=== PATIENT | female | born 1990 | race Caucasian/White ===

== ENCOUNTER 2017-06-03 13:01 | Inpatient (IN) | payer MEDICAID ==
[2017-06-03] MEDS ORDERED: Misoprostol 200 MCG Tab PO PRN (15:51)
[2017-06-03] MEDS ORDERED: Carboprost Tromethamine 250 MCG/1 ML Amp IM PRN (15:51)
[2017-06-03] MEDS ORDERED: Lidocaine 1% 50 ML MDV INJECT PRN (15:51)
[2017-06-03] MEDS ORDERED: Nalbuphine 10 MG/1 ML Vial IVPUSH PRN (15:51)
[2017-06-03] MEDS ORDERED: Ampicillin 2 GM in Sodium Chloride 0.9% 100 ML IV ONE (15:51)
[2017-06-03] MEDS ORDERED: Sodium Chloride 0.9% 2.5 ML Syringe FLUSH PRN (15:51)
[2017-06-03] MEDS ORDERED: Sodium Chloride 0.9% 10 ML Syringe FLUSH PRN (15:51)
[2017-06-03] MEDS ORDERED: Butorphanol 1 MG/ML SDV IVPUSH PRN (15:51)
[2017-06-03] MEDS ORDERED: Methylergonovine 0.2 MG/1 ML Amp IM PRN (15:51)
[2017-06-03] MEDS ORDERED: Water For Irrigation,Sterile 1,000 ML Container IRR PRN (15:51)
[2017-06-03] MEDS ORDERED: Oxytocin/0.9 % Sodium Chloride 30 UNIT/500 ML BAG IV SCH ×2 (16:00→17:30)
[2017-06-03] MEDS ORDERED: Lactated Ringers 1,000 ML IV SCH ×3 (16:00→18:30)
--- NOTE | 2017-06-03 16:36 | US ---
EXAM DATE: 06/03/17 PATIENT'S AGE: 27 Patient: ARBEN MILLER Facility: [place], [place] Site . Site : 1990 Study: US OB Pelvis [id number] 3:31:04 PM Ordering Physician: Alex Marquez Final Report: HISTORY: History of decelerations with contractions. Non reassuring heart tones. FINDINGS: Multiple grayscale static images from a biophysical profile were evaluated. There is a single viable intrauterine fetus in cephalic presentation. The cardiac rate is 158 beats per minute. The amniotic fluid index is 9.7 cm. The placenta is posterior and appears mature. No previa. The umbilical cord is seen near the neck but not visualized well enough to evaluate for nuchal cord. Three- vessel cord is present. Biophysical profile is 0/2 for breathing, 2/2 for movement, 2/2 for tone and 2/2 for amniotic fluid. Biophysical total is 6/8. IMPRESSION: 1. Single viable intrauterine fetus in cephalic presentation. 2. Amniotic fluid index is 9.7 cm. 3. Posterior mature placenta without previa. 4. Umbilical cord is noted at the neck. It is not visualized well enough to determine nuchal cord. 5. Biophysical profile 6/8. Dictated by Coleen Bolanos MD @ 06/03/2017 3:43:50 PM Dictated by: Coleen Bolanos MD @ 06/03/2017 15:44:08 (Electronic Signature) Report Signed by Proxy. MILLI
[2017-06-03] MEDS ORDERED: fentaNYL 100 MCG/2 ML SDV ONE (16:54)
[2017-06-03] MEDS ORDERED: Morphine PF 1 MG/ML Amp ONE (17:12)
[2017-06-03] MEDS ORDERED: Citric Acid/Sodium Citrate Solution 30 ML Cup ONE (17:24)
[2017-06-03] MEDS ORDERED: Propofol 200 MG/20 ML SDV ONE (17:26)
[2017-06-03] MEDS ORDERED: Citric Acid/Sodium Citrate Solution 30 ML Cup PO SCH (17:30)
--- NOTE | 2017-06-03 17:35 | PCM.LDHP ---
L&D History of Present Illness - General Date of Service: 06/03/17 Admit Problem/Dx: Patient Status Order with Admit Dx/Problem 06/03/17 17:26 Patient Status [ADT] Routine Admission Diagnosis/Problem Admission Diagnosis/Problem Source of Information: Patient History Limitations: Reports: No Limitations - History of Present Illness Improves with: Reports: None Worsens with: Reports: None Associated Symptoms: Reports: N - Related Data Allergies/Adverse Reactions: Allergies Allergy/AdvReac Type Severity Reaction Status Date / Time No Known Allergies Allergy Verified 04/26/16 22:30 Past Medical History - Past Health History Medical/Surgical History: Denies Medical/Surgical History Cardiovascular History: Reports: Heart Murmur Gastrointestinal History: Reports: Cholelithiasis DIRECTOR EPIDEMIOLOGY History: Reports: , Spontaneous Musculoskeletal History: Reports: Other (See Below) Other Musculoskeletal History: legg perthesis Neurological History: Reports: Migraines - Infectious Disease History Infectious Disease History: Reports: Chicken Pox - Past Surgical History GI Surgical History: Reports: Cholecystectomy Musculoskeletal Surgical History: Reports: Other (See Below) Other Musculoskeletal Surgeries/Procedures:: left hip surgery in and Social & Family History - Family History Family Medical History: Unobtainable Cardiac: Reports: Hypertension, [place] Neurological: Reports: CVA Endocrine/Metabolic: Reports: Diabetes, type II - Tobacco Use Smoking Status *Q: Current Every Day Smoker Years of Tobacco use: 4 Packs/Tins Daily: 1 Second Hand Smoke Exposure: Yes - Caffeine Use Caffeine Use: Reports: Coffee Caffeine Use Comment: 2 cups a day - Recreational Drug Use Recreational Drug Use: No H&P Review of Systems - Review of Systems: Review Of Systems: See Below General: Reports: No Symptoms HEENT: Reports: No Symptoms Pulmonary: Reports: No Symptoms Cardiovascular: Reports: No Symptoms Gastrointestinal: Reports: No Symptoms Genitourinary: Reports: No Symptoms Musculoskeletal: Reports: No Symptoms Skin: Reports: No Symptoms Psychiatric: Reports: No Symptoms Neurological: Reports: No Symptoms Hematologic/Lymphatic: Reports: No Symptoms Immunologic: Reports: No Symptoms L&D Exam - Exam Exam: See Below - Vital Signs Weight: 131.542 kg - OB Specific Fundal Height In cm: 37 Contraction Intensity: Moderate Movement: Active Heart Tones: Present Presentation: Vertex - Patient Data Lab Results Last 24 hrs: Laboratory Results - last 24 hr 06/03/17 06/03/17 Range/Units 16:20 16:20 WBC 9.23 (4.0-11.0) K/uL RBC 4.87 (4.30-5.90) M/uL Hgb 14.0 (12.0-16.0) g/dL Hct 42.1 (36.0-46.0) % MCV 86.4 (80.0-98.0) fL MCH 28.7 (27.0-32.0) pg MCHC 33.3 (31.0-37.0) g/dL RDW Std Deviation 46.8 (28.0-62.0) fl RDW Coeff of Delroy 15 (11.0-15.0) % Plt Count 232 (150-400) K/uL MPV 11.30 (7.40-12.00) fL Nucleated RBC % 0.0 /100WBC Nucleated RBCs # 0 K/uL Blood Type B POSITIVE Antibody Screen NEGATIVE Result Diagrams: 06/03/17 16:20 Problem List Initiated/Reviewed/Updated: Yes Orders Last 24hrs: Active Orders 24 hr Category Date Time Status Patient Status [ADT] Routine ADT 06/03/17 17:26 Active Heart Tones [RC] CONTINUOUS Care 06/03/17 15:51 Inactive Non Stress Test [RC] PER UNIT ROUTINE Care 06/03/17 14:24 Inactive Non Stress Test [RC] PER UNIT ROUTINE Care 06/03/17 15:51 Inactive Non Stress Test [RC] PER UNIT ROUTINE Care 06/03/17 17:26 Active May Shower [RC] ASDIRECTED Care 06/03/17 15:51 Inactive Notify Provider Vital Signs [RC] PRN Care 06/03/17 17:28 Active Notify Provider [RC] PRN Care 06/03/17 15:51 Inactive Procedure Site Prep Instruct [RC] ASDIRECTED Care 06/03/17 17:26 Active Up ad Stephanie [RC] ASDIRECTED Care 06/03/17 14:24 Inactive Up ad Stephanie [RC] ASDIRECTED Care 06/03/17 15:51 Inactive Up ad Stephanie [RC] ASDIRECTED Care 06/03/17 17:26 Active Vaginal Exam [RC] Click to Edit Care 06/03/17 14:24 Inactive Vaginal Exam [RC] PRN Care 06/03/17 15:51 Inactive Verify Patient Consent Obtain [RC] ASDIRECTED Care 06/03/17 17:26 Active Vital Signs [RC] PER UNIT ROUTINE Care 06/03/17 14:24 Inactive Vital Signs [RC] PER UNIT ROUTINE Care 06/03/17 15:51 Inactive Vital Signs [RC] PER UNIT ROUTINE Care 06/03/17 17:26 Active Citric Acid/Sodium Citrate [Bicitra Solution] Med 06/03/17 17:30 Ordered 30 ml PO .ONCE Lactated Ringers [Ringers, Lactated] 1,000 ml Med 06/03/17 17:30 Ordered IV .BOLUS Oxytocin/0.9 % Sodium Chloride [Oxytocin 30 Unit/500 ML Med 06/03/17 17:30 Ordered -NS] 30 unit in 500 ml IV TITRATE Schedule Procedure [COMM] Per Unit Routine Oth 06/03/17 17:26 Ordered Resuscitation Status Routine Resus Stat 06/03/17 17:26 Ordered Medication Orders Citric Acid/Sodium Citrate (Bicitra Solution) 30 ml PO .ONCE BRENDA Lactated Ringer's (Ringers, Lactated) 1,000 mls @ 500 mls/hr IV .BOLUS BRENDA Oxytocin/Sodium Chloride (Oxytocin 30 Unit/500 Ml-Ns) 30 unit in 500 mls @ 250 mls/hr IV TITRATE BRENDA Assessment/Plan Comment:: Unassigned Pt IUP 36+4 FAR Cat 2 remote from delivery will do primary C/ section.
[2017-06-03] MEDS ORDERED: Oxytocin 10 Units/1 ML SDV ONE ×2 (18:01→18:29)
[2017-06-03] MEDS ORDERED: Ondansetron 4 MG/2 ML SDV ONE (18:19)
[2017-06-03] MEDS ORDERED: Octyl 2-Cyanoacrylate 1 Tube ONE (18:22)
[2017-06-03] MEDS ORDERED: Acetaminophen/oxyCODONE 325-5 MG Tab PO PRN ×3 (18:29→19:10)
[2017-06-03] MEDS ORDERED: Lanolin 100% Cream 7 GM Tube TOP PRN (18:29)
[2017-06-03] MEDS ORDERED: Bisacodyl 10 MG Supp RECTAL PRN (18:29)
[2017-06-03] MEDS ORDERED: diphenhydrAMINE 50 MG/ML SDV IVPUSH PRN ×2 (18:29→19:10)
[2017-06-03] MEDS ORDERED: Ondansetron 4 MG/2 ML SDV IVPUSH PRN (18:29)
--- NOTE | 2017-06-03 18:29 | PCM.OPNOTE ---
- General Post-Op/Procedure Note Date of Surgery/Procedure: 06/03/17 Operative Procedure(s): Primary C/Section. IUP36+4 Pre Op Diagnosis: IUP 36+4 Unassigned distress Post-Op Diagnosis: Same Anesthesia Technique: Spinal Primary Surgeon: Jimmy Johnson Sales Representative Supervisor: Delaney Coughlin EBL in mLs: 800 Complications: None Condition: Good
[2017-06-03] MEDS ORDERED: Ketorolac 15 MG/ML SDV ONE (19:06)
[2017-06-03] MEDS: Ketorolac 30 MG/ML SDV IVPUSH SCH (19:09)
[2017-06-03] MEDS ORDERED: fentaNYL 100 MCG/2 ML SDV IVPUSH PRN (19:10)
[2017-06-03] MEDS ORDERED: Naloxone 0.4 MG/ML Syringe IVPUSH PRN (19:10)
--- NOTE | 2017-06-03 19:18 | PCM.PREANE ---
Preanesthetic Assessment - Anesthesia/Transfusion/Family Hx Anesthesia History: Prior Anesthesia Without Reaction Family History of Anesthesia Reaction: No Transfusion History: No Prior Transfusion(s) - Review of Systems General: No Symptoms Pulmonary: No Symptoms Cardiovascular: No Symptoms Gastrointestinal: No Symptoms Neurological: No Symptoms Other: Reports: None - Physical Assessment NPO Status Date: 06/03/17 NPO Status Time: 10:00 O2 Sat by Pulse Oximetry: 99 Respiratory Rate: 20 Vital Signs: Last Vital Signs Temp 36.9 C 06/03/17 18:39 Pulse 59 L 06/03/17 19:09 Resp 20 06/03/17 19:09 BP 101/53 L 06/03/17 19:09 Pulse Ox 99 06/03/17 19:09 Height: 1.6 m Weight: 131.542 kg ASA Class: 3E Mental Status: Alert & Oriented x3 Airway Class: Mallampati = 3 Dentition: Reports: Normal Dentition Thyro-Mental Finger Breadths: 3 Mouth Opening Finger Breadths: 3 ROM/Head Extension: Full Lungs: Clear to Auscultation, Normal Respiratory Effort Cardiovascular: Regular Rate, Murmurs (grade 1 S1 murmur. pt reports lifelong and asymptomatic) - Lab Values: Laboratory Last Values WBC 9.23 K/uL (4.0-11.0) 06/03/17 16:20 RBC 4.87 M/uL (4.30-5.90) 06/03/17 16:20 Hgb 14.0 g/dL (12.0-16.0) 06/03/17 16:20 Hct 42.1 % (36.0-46.0) 06/03/17 16:20 MCV 86.4 fL (80.0-98.0) 06/03/17 16:20 MCH 28.7 pg (27.0-32.0) 06/03/17 16:20 MCHC 33.3 g/dL (31.0-37.0) 06/03/17 16:20 RDW Std Deviation 46.8 fl (28.0-62.0) 06/03/17 16:20 RDW Coeff of Delroy 15 % (11.0-15.0) 06/03/17 16:20 Plt Count 232 K/uL (150-400) 06/03/17 16:20 MPV 11.30 fL (7.40-12.00) 06/03/17 16:20 Nucleated RBC % 0.0 /100WBC 06/03/17 16:20 Nucleated RBCs # 0 K/uL 06/03/17 16:20 Blood Type B POSITIVE 06/03/17 16:20 Antibody Screen NEGATIVE 06/03/17 16:20 - Allergies Allergies/Adverse Reactions: Allergies Allergy/AdvReac Type Severity Reaction Status Date / Time No Known Allergies Allergy Verified 04/26/16 22:30 - Blood Blood Available: Yes Product(s) Available: PRBC - Acknowledgements Anesthesia Type Planned: Spinal (Planned spinal with GETA as backup plan.) Pt an Appropriate Candidate for the Planned Anesthesia: Yes Alternatives and Risks of Anesthesia Discussed w Pt/Guardian: Yes Pt/Guardian Understands and Agrees with Anesthesia Plan: Yes Additional Comments: Pt reports had an epidural placed "which ended up as a spinal" in 2008. Catheter apparently was threaded into SA space. Pt stated it was a "difficult placement". PreAnesthesia Questionnaire - Past Health History Medical/Surgical History: Denies Medical/Surgical History Cardiovascular History: Reports: Heart Murmur Gastrointestinal History: Reports: Cholelithiasis CODING ASSISTANT History: Reports: , Spontaneous Musculoskeletal History: Reports: Other (See Below) Other Musculoskeletal History: legg perthesis Neurological History: Reports: Migraines - Infectious Disease History Infectious Disease History: Reports: Chicken Pox - Past Surgical History GI Surgical History: Reports: Cholecystectomy Musculoskeletal Surgical History: Reports: Other (See Below) Other Musculoskeletal Surgeries/Procedures:: left hip surgery in and - SUBSTANCE USE Smoking Status *Q: Current Every Day Smoker Tobacco Use Within Last Twelve Months: Cigarettes Second Hand Smoke Exposure: Yes Recreational Drug Use History: No - CURRENT (IN HOUSE) MEDS Current Meds: Current Medications Bisacodyl (Dulcolax) 10 mg RECTAL .ONCE PRN PRN Reason: Constipation Citric Acid/Sodium Citrate (Bicitra Solution) 30 ml PO .ONCE BRENDA Diphenhydramine HCl (Benadryl) 25 mg IVPUSH Q6H PRN PRN Reason: Itching or Nausea Docusate Sodium (Colace) 100 mg PO BID BRENDA Emollient Ointment (Lansinoh Hpa) 0 gm TOP ASDIRECTED PRN PRN Reason: Sore Nipples Lactated Ringer's (Ringers, Lactated) 1,000 mls @ 500 mls/hr IV .BOLUS BRENDA Oxytocin/Sodium Chloride (Oxytocin 30 Unit/500 Ml-Ns) 30 unit in 500 mls @ 250 mls/hr IV TITRATE [facility] Lactated Ringer's (Ringers, Lactated) 1,000 mls @ 125 mls/hr IV ASDIRECTED [facility] Ibuprofen (Motrin) 800 mg PO Q8H PRN PRN Reason: mild pain or fever Ketorolac Tromethamine (Toradol) 30 mg IVPUSH Q6H [facility] Stop: 06/04/17 18:31 Last Admin: 06/03/17 19:09 Dose: 30 mg Ondansetron HCl (Zofran) 4 mg IVPUSH Q4H PRN PRN Reason: Nausea/Vomiting Oxycodone/Acetaminophen (Percocet 325-5 Mg) 1 tab PO Q4H PRN PRN Reason: Pain (moderate 4-6) Oxycodone/Acetaminophen (Percocet 325-5 Mg) 2 tab PO Q4H PRN PRN Reason: Pain (moderate 4-6) Discontinued Medications Butorphanol Tartrate (Stadol) 1 mg IVPUSH Q1H PRN PRN Reason: Pain Carboprost Tromethamine (Hemabate Ds) 250 mcg IM ASDIRECTED PRN PRN Reason: Post Hemorrhage Citric Acid/Sodium Citrate (Bicitra Solution) Confirm Administered Dose 30 ml .ROUTE .STK-MED ONE Stop: 06/03/17 17:25 Fentanyl (Sublimaze) Confirm Administered Dose 100 mcg .ROUTE .STK-MED ONE Stop: 06/03/17 16:55 Ampicillin Sodium 2 gm/ Sodium (Chloride) 100 mls @ 200 mls/hr IV ONETIME ONE Stop: 06/03/17 16:20 Last Admin: 06/03/17 16:00 Dose: 200 mls/hr Lactated Ringer's (Ringers, Lactated) 1,000 mls @ 150 mls/hr IV ASDIRECTED [facility] Last Admin: 06/03/17 17:21 Dose: 150 mls/hr Oxytocin/Sodium Chloride (Oxytocin 30 Unit/500 Ml-Ns) 30 unit in 500 mls @ 500 mls/hr IV TITRATE [facility] Ketorolac Tromethamine (Toradol) Confirm Administered Dose 15 mg .ROUTE .STK- MED ONE Stop: 06/03/17 19:07 Lidocaine HCl (Xylocaine 1%) 50 ml INJECT .ONCE PRN PRN Reason: Laceration repair Methylergonovine Maleate (Methergine) 0.2 mg IM ASDIRECTED PRN PRN Reason: Post Hemorrhage Misoprostol (Cytotec) 200 mcg PO .ONCE PRN PRN Reason: Post Hemorrhage Morphine Sulfate (Duramorph Pf) Confirm Administered Dose 1 mg .ROUTE .STK-MED ONE Stop: 06/03/17 17:13 Nalbuphine HCl (Nubain) 10 mg IVPUSH Q1H PRN PRN Reason: Pain (severe 7-10) Octyl Cyanoacrylate (Dermabond Advance) Confirm Administered Dose 1 applic .ROUTE .STK-MED ONE Stop: 06/03/17 18:23 Ondansetron HCl (Zofran) Confirm Administered Dose 4 mg .ROUTE .STK-MED ONE Stop: 06/03/17 18:20 Oxytocin (Pitocin) Confirm Administered Dose 20 unit .ROUTE .STK-MED ONE Stop: 06/03/17 18:02 Oxytocin (Pitocin) Confirm Administered Dose 20 unit .ROUTE .STK-MED ONE Stop: 06/03/17 18:30 Propofol (Diprivan 20 Ml) Confirm Administered Dose 200 mg .ROUTE .STK-MED ONE Stop: 06/03/17 17:27 Sodium Chloride (Saline Flush) 10 ml FLUSH ASDIRECTED PRN PRN Reason: Keep Vein Open Sodium Chloride (Saline Flush) 2.5 ml FLUSH ASDIRECTED PRN PRN Reason: Keep Vein Open Sterile Water (Sterile Water For Irrigation) 1,000 ml IRR ASDIRECTED PRN PRN Reason: delivery
--- NOTE | 2017-06-03 19:18 | PCM.POSTAN ---
POST ANESTHESIA ASSESSMENT - MENTAL STATUS Mental Status: Alert, Oriented - RESPIRATORY Respiratory Status: Respiratory Rate WNL, Airway Patent, O2 Saturation Stable - CARDIOVASCULAR CV Status: Pulse Rate WNL, Blood Pressure Stable - GASTROINTESTINAL GI Status: No Symptoms - POST OP HYDRATION Hydration Status: Adequate & Stable
[2017-06-03] MEDS: Nalbuphine 10 MG/1 ML Vial IVPUSH PRN (21:05)
[2017-06-04] MEDS: Ketorolac 30 MG/ML SDV IVPUSH SCH ×4 (01:09→18:49)
[2017-06-04] MEDS: Nalbuphine 10 MG/1 ML Vial IVPUSH PRN (02:45)
--- NOTE | 2017-06-04 11:13 | PCM.SURGPN ---
- General Info Date of Service: 06/04/17 POD#: 1 Functional Status: Reports: Pain Controlled - Review of Systems General: Reports: No Symptoms HEENT: Reports: No Symptoms Pulmonary: Reports: No Symptoms Cardiovascular: Reports: No Symptoms Gastrointestinal: Reports: No Symptoms Genitourinary: Reports: No Symptoms Musculoskeletal: Reports: No Symptoms Skin: Reports: No Symptoms Neurological: Reports: No Symptoms Psychiatric: Reports: No Symptoms - Patient Data Vitals - Most Recent: Last Vital Signs Temp 37.0 C 06/04/17 08:00 Pulse 87 06/04/17 08:00 Resp 18 06/04/17 09:00 BP 93/46 L 06/04/17 08:00 Pulse Ox 95 06/04/17 09:00 Weight - Most Recent: 131.542 kg I&O - Last 24 Hours: Intake & Output 06/03/17 06/04/17 06/04/17 22:59 06:59 14:59 Intake Total 3300 2025 Output Total 250 650 550 Balance 3050 1375 -550 Lab Results Last 24 Hrs: Laboratory Results - last 24 hr 06/03/17 06/03/17 06/04/17 Range/Units 16:20 16:20 05:20 WBC 9.23 (4.0-11.0) K/uL RBC 4.87 (4.30-5.90) M/uL Hgb 14.0 11.4 L (12.0-16.0) g/dL Hct 42.1 34.1 L (36.0-46.0) % MCV 86.4 (80.0-98.0) fL MCH 28.7 (27.0-32.0) pg MCHC 33.3 (31.0-37.0) g/dL RDW Std Deviation 46.8 (28.0-62.0) fl RDW Coeff of Delroy 15 (11.0-15.0) % Plt Count 232 (150-400) K/uL MPV 11.30 (7.40-12.00) fL Nucleated RBC % 0.0 /100WBC Nucleated RBCs # 0 K/uL Blood Type B POSITIVE Antibody Screen NEGATIVE Med Orders - Current: Current Medications Bisacodyl (Dulcolax) 10 mg RECTAL .ONCE PRN PRN Reason: Constipation Citric Acid/Sodium Citrate (Bicitra Solution) 30 ml PO .ONCE [facility]EN[facility] Diphenhydramine HCl (Benadryl) 25 - 50 mg IVPUSH Q4H PRN PRN Reason: Itching Stop: 06/04/17 19:12 Last Admin: 06/03/17 23:58 Dose: 25 mg Docusate Sodium (Colace) 100 mg PO BID [facility] Emollient Ointment (Lansinoh Hpa) 0 gm TOP ASDIRECTED PRN PRN Reason: Sore Nipples Fentanyl (Sublimaze) 50 - 100 mcg IVPUSH Q30M PRN PRN Reason: Breakthrough Pain Stop: 06/04/17 19:11 Lactated Ringer's (Ringers, Lactated) 1,000 mls @ 500 mls/hr IV .BOLUS [facility] Oxytocin/Sodium Chloride (Oxytocin 30 Unit/500 Ml-Ns) 30 unit in 500 mls @ 250 mls/hr IV TITRATE [facility] Lactated Ringer's (Ringers, Lactated) 1,000 mls @ 125 mls/hr IV ASDIRECTED [facility] Last Admin: 06/03/17 22:51 Dose: 125 mls/hr Ibuprofen (Motrin) 800 mg PO Q8H PRN PRN Reason: mild pain or fever Ketorolac Tromethamine (Toradol) 30 mg IVPUSH Q6H [facility] Stop: 06/04/17 18:31 Last Admin: 06/04/17 07:08 Dose: 30 mg Nalbuphine HCl (Nubain) 2.5 - 10 mg IVPUSH Q3H PRN PRN Reason: Pruritis Stop: 06/04/17 19:12 Last Admin: 06/04/17 02:45 Dose: 5 mg Naloxone HCl (Narcan) 0.1 mg IVPUSH ONETIME PRN PRN Reason: Respiratory Depression Stop: 06/04/17 19:13 Ondansetron HCl (Zofran) 4 mg IVPUSH Q4H PRN PRN Reason: Nausea/Vomiting Oxycodone/Acetaminophen (Percocet 325-5 Mg) 1 tab PO Q4H PRN PRN Reason: Pain (moderate 4-6) Oxycodone/Acetaminophen (Percocet 325-5 Mg) 2 tab PO Q4H PRN PRN Reason: Pain (moderate 4-6) Discontinued Medications Butorphanol Tartrate (Stadol) 1 mg IVPUSH Q1H PRN PRN Reason: Pain Carboprost Tromethamine (Hemabate Ds) 250 mcg IM ASDIRECTED PRN PRN Reason: Post Hemorrhage Citric Acid/Sodium Citrate (Bicitra Solution) Confirm Administered Dose 30 ml .ROUTE .STK-MED ONE Stop: 06/03/17 17:25 Diphenhydramine HCl (Benadryl) 25 mg IVPUSH Q6H PRN PRN Reason: Itching or Nausea Fentanyl (Sublimaze) Confirm Administered Dose 100 mcg .ROUTE .STK-MED ONE Stop: 06/03/17 16:55 Ampicillin Sodium 2 gm/ Sodium (Chloride) 100 mls @ 200 mls/hr IV ONETIME ONE Stop: 06/03/17 16:20 Last Admin: 06/03/17 16:00 Dose: 200 mls/hr Lactated Ringer's (Ringers, Lactated) 1,000 mls @ 150 mls/hr IV ASDIRECTED [facility] Last Admin: 06/03/17 17:21 Dose: 150 mls/hr Oxytocin/Sodium Chloride (Oxytocin 30 Unit/500 Ml-Ns) 30 unit in 500 mls @ 500 mls/hr IV TITRATE [facility] Ketorolac Tromethamine (Toradol) Confirm Administered Dose 15 mg .ROUTE .STK- MED ONE Stop: 06/03/17 19:07 Lidocaine HCl (Xylocaine 1%) 50 ml INJECT .ONCE PRN PRN Reason: Laceration repair Methylergonovine Maleate (Methergine) 0.2 mg IM ASDIRECTED PRN PRN Reason: Post Hemorrhage Misoprostol (Cytotec) 200 mcg PO .ONCE PRN PRN Reason: Post Hemorrhage Morphine Sulfate (Duramorph Pf) Confirm Administered Dose 1 mg .ROUTE .STK-MED ONE Stop: 06/03/17 17:13 Nalbuphine HCl (Nubain) 10 mg IVPUSH Q1H PRN PRN Reason: Pain (severe 7-10) Octyl Cyanoacrylate (Dermabond Advance) Confirm Administered Dose 1 applic .ROUTE .STK-MED ONE Stop: 06/03/17 18:23 Ondansetron HCl (Zofran) Confirm Administered Dose 4 mg .ROUTE .STK-MED ONE Stop: 06/03/17 18:20 Oxycodone/Acetaminophen (Percocet 325-5 Mg) 1 - 2 tab PO Q4H PRN PRN Reason: Breakthrough Pain Stop: 06/04/17 19:10 Oxytocin (Pitocin) Confirm Administered Dose 20 unit .ROUTE .STK-MED ONE Stop: 06/03/17 18:02 Oxytocin (Pitocin) Confirm Administered Dose 20 unit .ROUTE .STK-MED ONE Stop: 06/03/17 18:30 Propofol (Diprivan 20 Ml) Confirm Administered Dose 200 mg .ROUTE .STK-MED ONE Stop: 06/03/17 17:27 Sodium Chloride (Saline Flush) 10 ml FLUSH ASDIRECTED PRN PRN Reason: Keep Vein Open Sodium Chloride (Saline Flush) 2.5 ml FLUSH ASDIRECTED PRN PRN Reason: Keep Vein Open Sterile Water (Sterile Water For Irrigation) 1,000 ml IRR ASDIRECTED PRN PRN Reason: delivery - Exam Wound/Incisions: Healing Well General: Alert, Oriented HEENT: Pupils Equal Neck: Supple Lungs: Clear to Auscultation, Normal Respiratory Effort Cardiovascular: Regular Rate, Regular Rhythm GI/Abdominal Exam: Normal Bowel Sounds, Soft, Non-Tender, No Organomegaly, No Distention, No Abnormal Bruit, No Mass, Pelvis Stable Extremities: Normal Inspection, Normal Range of Motion, Non-Tender, No Pedal Edema, Normal Capillary Refill Skin: Warm, Dry, Intact Neurological: No New Focal Deficit Psy/Mental Status: Alert, Normal Affect, Normal Mood - Problem List Review Problem List Initiated/Reviewed/Updated: Yes - My Orders Last 24 Hours: Active Orders 24 hr Category Date Time Status Patient Status [ADT] Routine ADT 06/03/17 18:29 Active Ambulate [RC] PER UNIT ROUTINE Care 06/03/17 18:29 Active Antiembolic Devices [RC] PER UNIT ROUTINE Care 06/03/17 18:29 Active Bradycardia-Neuroaxis [employer] [RC] ROUTINE Care 06/03/17 19:10 Active Communication Order [RC] PER UNIT ROUTINE Care 06/03/17 18:29 Active Heart Tones [RC] CONTINUOUS Care 06/03/17 15:51 Inactive Non Stress Test [RC] PER UNIT ROUTINE Care 06/03/17 14:24 Inactive Non Stress Test [RC] PER UNIT ROUTINE Care 06/03/17 15:51 Inactive Hypertension-Neuroaxis [employer] [RC] ROUTINE Care 06/03/17 19:10 Active Hypotension-Neuroaxis [employer] [RC] ROUTINE Care 06/03/17 19:10 Active May Shower [RC] ASDIRECTED Care 06/03/17 15:51 Inactive May Shower [RC] ASDIRECTED Care 06/03/17 18:29 Active Notify Provider Vital Signs [RC] PRN Care 06/03/17 17:28 Active Notify Provider [RC] PRN Care 06/03/17 15:51 Inactive Oxygen Therapy [RC] PER UNIT ROUTINE Care 06/03/17 19:10 Active Procedure Site Prep Instruct [RC] ASDIRECTED Care 06/03/17 17:26 Active RT Incentive Spirometry [RC] Q2HWA Care 06/03/17 18:29 Active Up ad Stephanie [RC] ASDIRECTED Care 06/03/17 14:24 Inactive Up ad Stephanie [RC] ASDIRECTED Care 06/03/17 15:51 Inactive Up ad Stephanie [RC] ASDIRECTED Care 06/03/17 17:26 Active Vaginal Exam [RC] Click to Edit Care 06/03/17 14:24 Inactive Vaginal Exam [RC] PRN Care 06/03/17 15:51 Inactive Vital Signs [RC] PER UNIT ROUTINE Care 06/03/17 14:24 Inactive Vital Signs [RC] PER UNIT ROUTINE Care 06/03/17 15:51 Inactive Vital Signs [RC] Q1H Care 06/03/17 19:10 Active Regular Diet [DIET] Diet 06/04/17 Breakfast Active Acetaminophen/oxyCODONE [Percocet 325-5 MG] Med 06/03/17 18:29 Active 1 tab PO Q4H PRN Acetaminophen/oxyCODONE [Percocet 325-5 MG] Med 06/03/17 18:29 Active 2 tab PO Q4H PRN Bisacodyl [Dulcolax] Med 06/03/17 18:29 Active 10 mg RECTAL .ONCE PRN Citric Acid/Sodium Citrate [Bicitra Solution] Med 06/03/17 17:30 Active 30 ml PO .ONCE Docusate Sodium [Colace] Med 06/03/17 21:00 Active 100 mg PO BID Ibuprofen [Motrin] Med 06/05/17 00:30 Active 800 mg PO Q8H PRN Ketorolac [Toradol] Med 06/03/17 18:30 Active 30 mg IVPUSH Q6H Lactated Ringers [Ringers, Lactated] 1,000 ml Med 06/03/17 17:30 Active IV .BOLUS Lactated Ringers [Ringers, Lactated] 1,000 ml Med 06/03/17 18:30 Active IV ASDIRECTED Lanolin [Lansinoh HPA] Med 06/03/17 18:29 Active See Dose Instructions TOP ASDIRECTED PRN Nalbuphine [Nubain] Med 06/03/17 19:10 Active 2.5 - 10 mg IVPUSH Q3H PRN Naloxone [Narcan] Med 06/03/17 19:10 Active 0.1 mg IVPUSH ONETIME PRN Ondansetron [Zofran] Med 06/03/17 18:29 Active 4 mg IVPUSH Q4H PRN Oxytocin/0.9 % Sodium Chloride [Oxytocin 30 Unit/500 ML Med 06/03/17 17:30 Active -NS] 30 unit in 500 ml IV TITRATE diphenhydrAMINE [Benadryl] Med 06/03/17 19:10 Active 25 - 50 mg IVPUSH Q4H PRN fentaNYL [Sublimaze] Med 06/03/17 19:10 Active 50 - 100 mcg IVPUSH Q30M PRN AN Neuroaxis Duram[employer] Precaution Reflex [OM.PC] PER Oth 06/03/17 19:15 Ordered UNIT ROUTINE AN Neuroaxis [employer] Precaution Reflex [OM.PC] PER Oth 06/04/17 19:15 Ordered UNIT ROUTINE Assess Lochia [WOMSER] Per Unit Routine Oth 06/03/17 18:29 Ordered Assess Uterine Involution [WOMSER] Per Unit Routine Oth 06/03/17 18:29 Ordered Breast Pump [WOMSER] Per Unit Routine Oth 06/03/17 18:29 Ordered Peripheral IV Discontinue [OM.PC] Routine Oth 06/03/17 18:29 Ordered Schedule Procedure [COMM] Per Unit Routine Oth 06/03/17 17:26 Ordered Sequential Compression Device [OM.PC] Per Unit Routine Oth 06/03/17 18:29 Ordered Resuscitation Status Routine Resus Stat 06/03/17 17:26 Ordered Medication Orders Bisacodyl (Dulcolax) 10 mg RECTAL .ONCE PRN PRN Reason: Constipation Citric Acid/Sodium Citrate (Bicitra Solution) 30 ml PO .ONCE [facility] Diphenhydramine HCl (Benadryl) 25 - 50 mg IVPUSH Q4H PRN PRN Reason: Itching Stop: 06/04/17 19:12 Last Admin: 06/03/17 23:58 Dose: 25 mg Docusate Sodium (Colace) 100 mg PO BID [facility] Emollient Ointment (Lansinoh Hpa) 0 gm TOP ASDIRECTED PRN PRN Reason: Sore Nipples Fentanyl (Sublimaze) 50 - 100 mcg IVPUSH Q30M PRN PRN Reason: Breakthrough Pain Stop: 06/04/17 19:11 Lactated Ringer's (Ringers, Lactated) 1,000 mls @ 500 mls/hr IV .BOLUS [facility] Oxytocin/Sodium Chloride (Oxytocin 30 Unit/500 Ml-Ns) 30 unit in 500 mls @ 250 mls/hr IV TITRATE [facility] Lactated Ringer's (Ringers, Lactated) 1,000 mls @ 125 mls/hr IV ASDIRECTED [facility] Last Admin: 06/03/17 22:51 Dose: 125 mls/hr Ibuprofen (Motrin) 800 mg PO Q8H PRN PRN Reason: mild pain or fever Ketorolac Tromethamine (Toradol) 30 mg IVPUSH Q6H [facility] Stop: 06/04/17 18:31 Last Admin: 06/04/17 07:08 Dose: 30 mg Admin: 06/04/17 01:09 Dose: 30 mg Admin: 06/03/17 19:09 Dose: 30 mg Nalbuphine HCl (Nubain) 2.5 - 10 mg IVPUSH Q3H PRN PRN Reason: Pruritis Stop: 06/04/17 19:12 Last Admin: 06/04/17 02:45 Dose: 5 mg Admin: 06/03/17 21:05 Dose: 5 mg Naloxone HCl (Narcan) 0.1 mg IVPUSH ONETIME PRN PRN Reason: Respiratory Depression Stop: 06/04/17 19:13 Ondansetron HCl (Zofran) 4 mg IVPUSH Q4H PRN PRN Reason: Nausea/Vomiting Oxycodone/Acetaminophen (Percocet 325-5 Mg) 1 tab PO Q4H PRN PRN Reason: Pain (moderate 4-6) Oxycodone/Acetaminophen (Percocet 325-5 Mg) 2 tab PO Q4H PRN PRN Reason: Pain (moderate 4-6) - Assessment Assessment (Free Text/Narrative):: S/P C/Section doing well - Plan Plan (Free Text/Narrative):: Send home in am.
[2017-06-04] MEDS: Docusate Sodium 100 MG Cap PO SCH (14:23)
--- NOTE | 2017-06-04 15:28 | PCM48HPAN ---
Post Anesthesia Note - EVALUATION WITHIN 48HRS OF ANESTHETIC Vital Signs in Normal Range: Yes Patient Participated in Evaluation: Yes Respiratory Function Stable: Yes Airway Patent: Yes Cardiovascular Function Stable: Yes Hydration Status Stable: Yes Pain Control Satisfactory: Yes Nausea and Vomiting Control Satisfactory: Yes Mental Status Recovered: Yes - COMMENTS/OBSERVATIONS Free Text/Narrative:: Pt reports full return of sensation and movement to lower extremities. Denies any problems or questions in regards to SAB for section.
[2017-06-05] MEDS: Ibuprofen 800 MG Tab PO PRN ×2 (04:05→11:42)
[2017-06-05] MEDS: Docusate Sodium 100 MG Cap PO SCH ×2 (06:02→13:58)
[2017-06-05 09:32] VITALS: BP 141/64
--- NOTE | 2017-06-05 10:49 | PCM.SURGPN ---
- General Info Date of Service: 06/05/17 POD#: 2 Functional Status: Reports: Pain Controlled - Review of Systems General: Reports: No Symptoms HEENT: Reports: No Symptoms Pulmonary: Reports: No Symptoms Cardiovascular: Reports: No Symptoms Gastrointestinal: Reports: No Symptoms Genitourinary: Reports: No Symptoms Musculoskeletal: Reports: No Symptoms Skin: Reports: No Symptoms Neurological: Reports: No Symptoms Psychiatric: Reports: No Symptoms - Patient Data Vitals - Most Recent: Last Vital Signs Temp 37.4 C 06/05/17 08:55 Pulse 97 06/05/17 08:55 Resp 16 06/05/17 08:55 BP 141/64 H 06/05/17 08:55 Pulse Ox 97 06/05/17 08:55 Weight - Most Recent: 131.542 kg Med Orders - Current: Current Medications Bisacodyl (Dulcolax) 10 mg RECTAL .ONCE PRN PRN Reason: Constipation Citric Acid/Sodium Citrate (Bicitra Solution) 30 ml PO .ONCE [facility]EN[facility] Docusate Sodium (Colace) 100 mg PO BID [facility] Last Admin: 06/05/17 06:02 Dose: Not Given Emollient Ointment (Lansinoh Hpa) 0 gm TOP ASDIRECTED PRN PRN Reason: Sore Nipples Lactated Ringer's (Ringers, Lactated) 1,000 mls @ 500 mls/hr IV .BOLUS [facility] Oxytocin/Sodium Chloride (Oxytocin 30 Unit/500 Ml-Ns) 30 unit in 500 mls @ 250 mls/hr IV TITRATE [facility] Lactated Ringer's (Ringers, Lactated) 1,000 mls @ 125 mls/hr IV ASDIRECTED [facility] Last Admin: 06/03/17 22:51 Dose: 125 mls/hr Ibuprofen (Motrin) 800 mg PO Q8H PRN PRN Reason: mild pain or fever Last Admin: 06/05/17 04:05 Dose: 800 mg Ondansetron HCl (Zofran) 4 mg IVPUSH Q4H PRN PRN Reason: Nausea/Vomiting Oxycodone/Acetaminophen (Percocet 325-5 Mg) 1 tab PO Q4H PRN PRN Reason: Pain (moderate 4-6) Oxycodone/Acetaminophen (Percocet 325-5 Mg) 2 tab PO Q4H PRN PRN Reason: Pain (moderate 4-6) Discontinued Medications Butorphanol Tartrate (Stadol) 1 mg IVPUSH Q1H PRN PRN Reason: Pain Carboprost Tromethamine (Hemabate Ds) 250 mcg IM ASDIRECTED PRN PRN Reason: Post Hemorrhage Citric Acid/Sodium Citrate (Bicitra Solution) Confirm Administered Dose 30 ml .ROUTE .STK-MED ONE Stop: 06/03/17 17:25 Diphenhydramine HCl (Benadryl) 25 mg IVPUSH Q6H PRN PRN Reason: Itching or Nausea Diphenhydramine HCl (Benadryl) 25 - 50 mg IVPUSH Q4H PRN PRN Reason: Itching Stop: 06/04/17 19:12 Last Admin: 06/03/17 23:58 Dose: 25 mg Fentanyl (Sublimaze) Confirm Administered Dose 100 mcg .ROUTE .STK-MED ONE Stop: 06/03/17 16:55 Fentanyl (Sublimaze) 50 - 100 mcg IVPUSH Q30M PRN PRN Reason: Breakthrough Pain Stop: 06/04/17 19:11 Ampicillin Sodium 2 gm/ Sodium (Chloride) 100 mls @ 200 mls/hr IV ONETIME ONE Stop: 06/03/17 16:20 Last Admin: 06/03/17 16:00 Dose: 200 mls/hr Lactated Ringer's (Ringers, Lactated) 1,000 mls @ 150 mls/hr IV ASDIRECTED [facility] Last Admin: 06/03/17 17:21 Dose: 150 mls/hr Oxytocin/Sodium Chloride (Oxytocin 30 Unit/500 Ml-Ns) 30 unit in 500 mls @ 500 mls/hr IV TITRATE [facility] Ketorolac Tromethamine (Toradol) 30 mg IVPUSH Q6H [facility] Stop: 06/04/17 18:31 Last Admin: 06/04/17 18:49 Dose: 30 mg Ketorolac Tromethamine (Toradol) Confirm Administered Dose 15 mg .ROUTE .STK- MED ONE Stop: 06/03/17 19:07 Last Admin: 06/04/17 14:21 Dose: Not Given Lidocaine HCl (Xylocaine 1%) 50 ml INJECT .ONCE PRN PRN Reason: Laceration repair Methylergonovine Maleate (Methergine) 0.2 mg IM ASDIRECTED PRN PRN Reason: Post Hemorrhage Misoprostol (Cytotec) 200 mcg PO .ONCE PRN PRN Reason: Post Hemorrhage Morphine Sulfate (Duramorph Pf) Confirm Administered Dose 1 mg .ROUTE .STK-MED ONE Stop: 06/03/17 17:13 Nalbuphine HCl (Nubain) 10 mg IVPUSH Q1H PRN PRN Reason: Pain (severe 7-10) Nalbuphine HCl (Nubain) 2.5 - 10 mg IVPUSH Q3H PRN PRN Reason: Pruritis Stop: 06/04/17 19:12 Last Admin: 06/04/17 02:45 Dose: 5 mg Naloxone HCl (Narcan) 0.1 mg IVPUSH ONETIME PRN PRN Reason: Respiratory Depression Stop: 06/04/17 19:13 Octyl Cyanoacrylate (Dermabond Advance) Confirm Administered Dose 1 applic .ROUTE .STK-MED ONE Stop: 06/03/17 18:23 Ondansetron HCl (Zofran) Confirm Administered Dose 4 mg .ROUTE .STK-MED ONE Stop: 06/03/17 18:20 Oxycodone/Acetaminophen (Percocet 325-5 Mg) 1 - 2 tab PO Q4H PRN PRN Reason: Breakthrough Pain Stop: 06/04/17 19:10 Oxytocin (Pitocin) Confirm Administered Dose 20 unit .ROUTE .STK-MED ONE Stop: 06/03/17 18:02 Oxytocin (Pitocin) Confirm Administered Dose 20 unit .ROUTE .STK-MED ONE Stop: 06/03/17 18:30 Propofol (Diprivan 20 Ml) Confirm Administered Dose 200 mg .ROUTE .STK-MED ONE Stop: 06/03/17 17:27 Sodium Chloride (Saline Flush) 10 ml FLUSH ASDIRECTED PRN PRN Reason: Keep Vein Open Sodium Chloride (Saline Flush) 2.5 ml FLUSH ASDIRECTED PRN PRN Reason: Keep Vein Open Sterile Water (Sterile Water For Irrigation) 1,000 ml IRR ASDIRECTED PRN PRN Reason: delivery - Exam Wound/Incisions: Healing Well General: Alert, Oriented HEENT: Pupils Equal Neck: Supple Lungs: Clear to Auscultation, Normal Respiratory Effort Cardiovascular: Regular Rate, Regular Rhythm GI/Abdominal Exam: Normal Bowel Sounds, Soft, Non-Tender, No Organomegaly, No Distention, No Abnormal Bruit, No Mass, Pelvis Stable Extremities: Normal Inspection, Normal Range of Motion, Non-Tender, No Pedal Edema, Normal Capillary Refill Skin: Warm, Dry, Intact Neurological: No New Focal Deficit Psy/Mental Status: Alert, Normal Affect, Normal Mood - Problem List Review Problem List Initiated/Reviewed/Updated: Yes - My Orders Last 24 Hours: Active Orders 24 hr Category Date Time Status Ibuprofen [Motrin] Med 06/05/17 00:30 Active 800 mg PO Q8H PRN AN Neuroaxis Duramorph Precaution Reflex [OM.PC] PER Oth 06/04/17 19:15 Ordered UNIT ROUTINE Medication Orders Bisacodyl (Dulcolax) 10 mg RECTAL .ONCE PRN PRN Reason: Constipation Citric Acid/Sodium Citrate (Bicitra Solution) 30 ml PO .ONCE [facility] Docusate Sodium (Colace) 100 mg PO BID [facility] Last Admin: 06/05/17 06:02 Dose: Not Given Admin: 06/04/17 14:23 Dose: Not Given Emollient Ointment (Lansinoh Hpa) 0 gm TOP ASDIRECTED PRN PRN Reason: Sore Nipples Lactated Ringer's (Ringers, Lactated) 1,000 mls @ 500 mls/hr IV .BOLUS [facility] Oxytocin/Sodium Chloride (Oxytocin 30 Unit/500 Ml-Ns) 30 unit in 500 mls @ 250 mls/hr IV TITRATE [facility] Lactated Ringer's (Ringers, Lactated) 1,000 mls @ 125 mls/hr IV ASDIRECTED [facility] Last Admin: 06/03/17 22:51 Dose: 125 mls/hr Ibuprofen (Motrin) 800 mg PO Q8H PRN PRN Reason: mild pain or fever Last Admin: 06/05/17 04:05 Dose: 800 mg Ondansetron HCl (Zofran) 4 mg IVPUSH Q4H PRN PRN Reason: Nausea/Vomiting Oxycodone/Acetaminophen (Percocet 325-5 Mg) 1 tab PO Q4H PRN PRN Reason: Pain (moderate 4-6) Oxycodone/Acetaminophen (Percocet 325-5 Mg) 2 tab PO Q4H PRN PRN Reason: Pain (moderate 4-6) - Assessment Assessment (Free Text/Narrative):: S/P C/section doing well willsend home today.
--- NOTE | 2017-06-08 06:18 | OR ---
SURGEON: Jimmy Johnson MD DATE OF PROCEDURE: PREOPERATIVE DIAGNOSES: Intrauterine 36 weeks plus four, unassigned, category 2 heart rate, non-reassuring heart rate, remote from delivery, thick meconium. POSTOPERATIVE DIAGNOSES: Intrauterine 36 weeks plus four, unassigned, category 2 heart rate, non-reassuring heart rate, remote from delivery, thick meconium. OPERATION PERFORMED: Primary low transverse section. TELEGRAPH PLANT MAINTAINER: Delaney Coughlin CNM. ANESTHESIA: Spinal. Stephanie Stevens and Dr. Murillo. ESTIMATED BLOOD LOSS: 800 mL. COMPLICATIONS: None. FINDINGS: Male fetus. score and the weight are not available at this time. INDICATIONS: This patient is 27. She is para 2-0-2-2. This is her 6th . She had 2 previous vaginal deliveries. She was assigned to us. She presented to Labor and Delivery in active labor. She was seeing a doctor in [place] and she recently moved to this area. We obtained the records from her doctor in [place] and it shows that she is 36 weeks +4 according to her reasonable early date. The patient did start having repeat late variable deceleration with a late component with every single contraction. Ultrasound for a biophysical profile was 4/8. There is no movement, NST is not reactive, and then the patient while she is going to the bathroom, she had a spontaneous rupture of membrane, it was a thick meconium and she was vertex presentation by the ultrasound. The patient has continued to have repeat variable with late component with every single contraction. She is not progressing fast enough. She is a 3 to 4 cm. She is remote from delivery. The decision was made to do primary low transverse section. PROCEDURE IN DETAIL: The patient was brought to the OR, the patient properly identified. After adequate level of spinal anesthesia with a Good catheter in the bladder, time- out was taken. The patient prepped and draped in sterile fashion as usual. Low transverse Pfannenstiel skin incision done. Volodymyr's fascia and rectus fascia were opened in the direction of the incision. The 2 recti muscles were and peritoneal cavity was entered. Bladder flap was raised in the usual manner pushing the bladder away from the lower uterine segment. Low transverse uterine incision was done, was in a vertex position, delivered without any problem and handed to the chief mechanical officer, Dr. Solis, who was present at the time of delivery and she has commenced resuscitation of the fetus. The score and the weight are not available at this time. The placenta delivered spontaneous complete and intact and sent for histopathology and repair of the lower uterine segment done with 2-0 Vicryl continuous interlocking for hemostasis. It is worth noticing at this time when we entered the uterus there was a nuchal cord x2 is noticed on the fetus. After repairing the uterus with 0 Vicryl in 2 layers, then reperitonealization of the lower uterine segment with 3-0 Vicryl continuous and then the peritoneal cavity evacuated completely from old blood and blood clot and closed with 3-0 Vicryl continuous and then the rectus fascia was closed with #1 PDS double strand continuous, Volodymyr's fascia with 3-0 Vicryl continuous, and the skin closed with 3-0 Vicryl on Zane needle in a subcuticular fashion with Dermabond. Instrument and sponge count was correct. The patient tolerated the procedure well and went to recovery room in stable general condition. YESENIA / KAVON /[id number]
== END 2017-06-05 11:46 | disposition home or self-care (01) | DRG 766 ==
LOC: MW.OB 13:01 → MW.OBCHECK 13:01 → OBSVTOIN 16:05 → MW.OB 16:05
PROVIDERS: ADMIT Obstetrics & Gynecology; ATTEND Obstetrics & Gynecology
PROC: 10D00Z1 Extraction of Products of Conception, Low, Open Approach (ICD-10-PCS; principal; 2017-06-03)
DX: O76 Abnormality in fetal heart rate and rhythm complicating labor and delivery (principal); O77.0 Labor and delivery complicated by meconium in amniotic fluid; O69.1XX0 Labor and delivery complicated by cord around neck, with compression, not applicable or unspecified; Z3A.36 36 weeks gestation of pregnancy; Z37.0 Single live birth
CPT/HCPCS: 01961; 36415; 59025; 76819; 76819-26; 85014; 85018; 85027; 86850; 86900; 86901; 88307; A9270-GY; J0290; J1200; J1885; J2274; J2300; J2405; J2590; J2704; J7030; J7120

== ENCOUNTER 2017-06-23 23:22 | Emergency (ER) | payer MEDICAID ==
--- NOTE | 2017-06-23 23:34 | EDM.PDOC ---
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 Montelongo out of line attendant emergent was performed by Dr. Johnson. She was then transferred to [place] for continued management, she has had one week follow-up of the incision in [place] apparently per patient Presents today with possible infection, she is an obese female with large skin fold in the pelvic area where the low transverse incision is performed , there is surrounding cellulitis and scant exudates the incision appears to be healing fairly well I cannot express any exudate from the incision whatsoever there is some odor but it appears to be a combination of mild cellulitis and significant yeast infection of the skin fold. No fever nausea vomiting chills sweats no abdominal pain no chest pain shortness breath headache dizziness palpitation no bowel or urine symptoms Surgical incision has healed for the most part there are couple areas that are healing by secondary intent with scant exudate along the border of the incision however this is likely more from the East infection rather than a wound infection as I am unable to express any exudates from the wound ] Review of systems: As per history of present illness and below otherwise all systems reviewed and negative. Past medical history: As per history of present illness and as reviewed below otherwise noncontributory. Surgical history: As per history of present illness and as reviewed below otherwise noncontributory. Social history: No reported history of drug or alcohol abuse. Family history: As per history of present illness and as reviewed below otherwise noncontributory. Physical exam: HEENT: Atraumatic, normocephalic, pupils reactive, negative for conjunctival pallor or scleral icterus, mucous membranes moist, throat clear, neck supple, nontender, trachea midline. Lungs: Clear to auscultation, breath sounds equal bilaterally, chest nontender. Heart: S1S2, regular, negative for clicks, rubs, or JVD. Abdomen: Soft, nondistended, nontender. Negative for masses or hepatosplenomegaly. Negative for costovertebral tenderness. Pelvis: Stable nontender. Genitourinary: Deferred. Rectal: Deferred. Extremities: Atraumatic, negative for cords or calf pain. Neurovascular unremarkable. Neuro: Awake, alert, oriented. Cranial nerves II through XII unremarkable. Cerebellum unremarkable. Motor and sensory unremarkable throughout. Exam nonfocal. Skin as per history of present illness otherwise unremarkable Diagnostics: [Wound culture ] Therapeutics: [Nystatin powder Cleocin 300 mg by mouth 3 times a day #30 no refill ] Impression: [Post June 03 Bonita skin infection] Mild cellulitis Definitive disposition and diagnosis as appropriate pending reevaluation and review of above. - Related Data Allergies Allergy/AdvReac Type Severity Reaction Status Date / Time No Known Allergies Allergy Verified 06/23/17 23:36 Home Meds: Home Meds . 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 Musculoskeletal History: Reports: Other (See Below) Other Musculoskeletal History: legg perthesis Neurological History: Reports: Migraines - Infectious Disease History Infectious Disease History: Reports: Chicken Pox - Past Surgical History GI Surgical History: Reports: Cholecystectomy Musculoskeletal Surgical History: Reports: Other (See Below) Other Musculoskeletal Surgeries/Procedures:: left hip surgery in and Social & Family History - Family History Family Medical History: Unobtainable Cardiac: Reports: Hypertension, [facility] Neurological: Reports: CVA Endocrine/Metabolic: Reports: Diabetes, type II - Tobacco Use Smoking Status *Q: Current Every Day Smoker Years of Tobacco use: 4 Packs/Tins Daily: 1 Second Hand Smoke Exposure: Yes - Caffeine Use Caffeine Use: Reports: Coffee Caffeine Use Comment: 2 cups a day - Recreational Drug Use Recreational Drug Use: No ED ROS GENERAL - Review of Systems Review Of Systems: ROS reveals no pertinent complaints other than HPI. ED EXAM, GENERAL - Physical Exam Exam: See Below Course - Vital Signs Last Recorded V/S: Last Vital Signs Temp 96.6 F 06/23/17 23:33 Pulse 91 06/23/17 23:33 Resp 18 06/23/17 23:33 BP 141/87 H 06/23/17 23:33 Pulse Ox 100 06/23/17 23:33 Departure - Departure Time of Disposition: 23:50 Disposition: Home, Self-Care 01 Condition: Good Clinical Impression: Cellulitis, Bonita infection of flexural skin - Discharge Information Referrals: Sujit Moody MD [Primary Care Provider] - Forms: ED Department Discharge Additional Instructions: Medication as prescribed Return if symptoms persist or worsen or fever nausea vomiting chills sweats despite antibiotics Follow-up with Dr. Johnson next week call Tuesday for scheduling appropriate follow -up [address] [address] The following information is given to patients seen in the emergency department who are being discharged to home. This information is to outline your options for follow-up care. We provide all patients seen in our emergency department with a follow-up referral. The need for follow-up, as well as the timing and circumstances, are variable depending upon the specifics of your emergency department visit. If you don't have a primary care physician on staff, we will provide you with a referral. We always advise you to contact your personal physician following an emergency department visit to inform them of the circumstance of the visit and for follow-up with them and/or the need for any referrals to a consulting specialist. The emergency department will also refer you to a specialist when appropriate. This referral assures that you have the opportunity for follow-up care with a specialist. All of these measure are taken in an effort to provide you with optimal care, which includes your follow-up. Under all circumstances we always encourage you to contact your private physician who remains a resource for coordinating your care. When calling for follow-up care, please make the office aware that this follow-up is from your recent emergency room visit. If for any reason you are refused follow-up, please contact the [facility] emergency department at and asked to speak to the emergency department charge nurse.
[2017-06-24] MEDS ORDERED: Clindamycin HCl 150 MG Cap PO ONE (00:02)
[2017-06-24 00:17] VITALS: BP 112/71
== END 2017-06-24 00:15 | disposition home or self-care (01) ==
LOC: MW.ED 23:22
DX: O86.0 Infection of obstetric surgical wound (principal); O98.83 Other maternal infectious and parasitic diseases complicating the puerperium; B37.2 Candidiasis of skin and nail; O99.335 Smoking (tobacco) complicating the puerperium; F17.210 Nicotine dependence, cigarettes, uncomplicated
CPT/HCPCS: 87070; 87077; 87186; 99283; A9270